=== PATIENT | female | born 1970 | race African-American/Black ===

== ENCOUNTER → 2018-01-31 | Outpatient (CLI) | payer MEDICARE, MEDICAID ==
[~2018-01-31] MED LIST: AMLO10TA4 PO; BARIUM SULFATE 450ML ORAL SUSP ONE; CARI350T PO; CLON0.5T4 PO; POTA-9 PO
== END | disposition home or self-care (01) ==
LOC: CT 10:47
PROVIDERS: ATTEND Surgery
DX: K76.0 Fatty (change of) liver, not elsewhere classified (principal)
CPT/HCPCS: 74176

== ENCOUNTER → 2023-11-09 | Outpatient (CLI) | payer MEDICARE, MEDICAID ==
[~2023-11-09] MED LIST changes: +BARIUM SULFATE 176 GM SUSP.RECON ONE; -CARI350T PO; +CARI350T28 PO; +EZ-HD SUSPENSION(BARIUM SULFATE 340GM) PO ONE; +POTA-203 PO; -POTA-9 PO; +SIMETHICONE/SOD BICARB/CIT AC 1 EACH GRAN.EF.PK ONE
== END | disposition home or self-care (01) ==
LOC: RAD 09:57
PROVIDERS: ATTEND Internal Medicine Gastroenterology
DX: R13.10 Dysphagia, unspecified (principal)
CPT/HCPCS: 74220; J7517

== ENCOUNTER → 2025-03-23 | Outpatient (CLI) | payer MEDICARE, MEDICAID ==
[~2025-03-23] MED LIST changes: +AMLO-905 PO; -AMLO10TA4 PO; -BARIUM SULFATE 450ML ORAL SUSP ONE; +CARI-518 PO; -CARI350T28 PO; -SIMETHICONE/SOD BICARB/CIT AC 1 EACH GRAN.EF.PK ONE
== END | disposition home or self-care (01) ==
LOC: RAD 09:53
PROVIDERS: ATTEND Internal Medicine Gastroenterology
DX: R13.10 Dysphagia, unspecified (principal)
CPT/HCPCS: 74220